=== PATIENT | male | born 1955 | race Caucasian/White ===

== ENCOUNTER 2017-01-07 19:19 | Emergency (ER) | payer OTHER ==
[~2017-01-07] VITALS: Ht 175.3 cm; Wt 90.9 kg
[~2017-01-07 19:19] MED LIST: ASPIRIN E.C. 8181 MG PO; CLARITIN 1010 MG/TAB PO; GLUCOPHAGE500 MG/TAB PO; OLEPTRO150 MG PO; PRILOSEC 20MG20 MG PO; SINGULAIR 110 MG/TAB PO
[2017-01-07 19:24] VITALS: BP 152/75; TEMP 98.6
[2017-01-07 20:05] VITALS: PULSE 77
== END 2017-01-07 20:05 | disposition home or self-care (01) ==
LOC: COL.ER 19:19
DX: S01.01XA Laceration without foreign body of scalp, initial encounter (principal); W01.198A Fall on same level from slipping, tripping and stumbling with subsequent striking against other object, initial encounter; Y92.89 Other specified places as the place of occurrence of the external cause

== ENCOUNTER 2017-01-17 17:31 | Emergency (ER) | payer SELFPAY ==
[2017-01-17 17:42] VITALS: BP 142/89; PULSE 71; TEMP 98.7
== END 2017-01-17 17:52 | disposition home or self-care (01) ==
LOC: COL.ER 17:31
DX: Z48.02 Encounter for removal of sutures (principal)